=== PATIENT | male | born 1960 | race Caucasian/White ===

== ENCOUNTER → 2018-12-21 | Outpatient (CLI) | payer BC ==
--- NOTE | 2018-12-21 13:46 | XR ---
EXAMINATION TYPE: XR thoracic spine complete DATE OF EXAM: 12/21/2018 CLINICAL HISTORY: Increasing mid to upper thoracic spine pain with no known injury. TECHNIQUE: Frontal, lateral, and swimmer's view of thoracic spine are obtained. COMPARISON: None. FINDINGS: Thoracic spine show satisfactory alignment without evidence of acute fracture or dislocatio n. Vertebral body heights are preserved. Multilevel bridging anterior osteophytes and intervertebral disc space narrowing are seen predominantly within the mid to lower thoracic spine. Visualized ribs are unremarkable. IMPRESSION: 1. No acute fracture or malalignment is seen in the thoracic spine. 2. 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
== END | disposition home or self-care (01) ==
LOC: RADXRYALE 13:08
PROVIDERS: ATTEND Internal Medicine
DX: M47.814 Spondylosis without myelopathy or radiculopathy, thoracic region (principal)
CPT/HCPCS: 72072